=== PATIENT | male | born 1995 | race Caucasian/White ===

== ENCOUNTER 2021-06-05 10:48 | Outpatient (REF) | payer OTHER, SELFPAY ==
[2021-06-05 12:36] LABS: COVID-19 Test Negative (Negative)
== END 2021-06-05 10:49 | disposition home or self-care (01) ==
LOC: HO.LAB 10:48
PROVIDERS: Visit Provider Internal Medicine
DX: Z20.822 Contact with and (suspected) exposure to COVID-19 (principal)
CPT/HCPCS: 36415; 87635; C9803

== ENCOUNTER 2023-03-05 09:13 | Emergency (ER) | payer MEDICAID, SELFPAY ==
[2023-03-05 09:32] VITALS: BP 121/76; PULSE 90; RESP 16; TEMP 37; O2SAT 98; BMI 33.7
--- NOTE | 2023-03-05 10:51 | ED.NAVMDI ---
HPI - Nausea/Vomiting/Diarrhea General Chief complaint: Nausea/Vomiting/Diarrhea Stated complaint: N/V/D Fever Time Seen by Provider: 03/05/23 10:05 History of Present Illness HPI Narrative: patient complains of nausea vomiting and diarrhea for 3 days last vomiting was yesterday night at 04:00, he is tolerating small sips of fluid still feels nauseous, he vomited last night when he tried to eat dinner, he has no abdominal pain no fever no dizziness no weakness and otherwise feels well The diarrhea has no blood, is for 5 times a day of watery stools Related Data Previous Rx's Medication Instructions Recorded loperamide 2 mg capsule (Imodium 2 mg PO Q4H PRN loose stool #10 03/05/23 A-D) caps ondansetron 4 mg disintegrating 4 mg PO Q6H PRN nausea and 03/05/23 tablet vomiting #14 tabs Allergies Allergy/AdvReac Type Severity Reaction Status Date / Time shrimp Allergy Severe ANAPHYLAXIS Verified 03/05/23 09:32 SEAFOOD Allergy Severe ANAPHYLAXIS Uncoded 06/28/20 17:35 [facility] Past Medical History Source: nursing notes reviewed Social History Social History Advance Directives: No Advance Directives Information Provided: Yes Physical Exam Vital Signs: Vital Signs: Last Vital Signs Temp 98.6 F 03/05/23 09:32 Pulse 90 03/05/23 09:32 Resp 16 03/05/23 09:32 BP 121/76 03/05/23 09:32 Pulse Ox 98 03/05/23 09:32 O2 Del Method Room Air 03/05/23 09:32 BMI result Body Mass Index 33.7 general appearance comfortable cheerful cooperative no acute distress Eyes anicteric no pallor Neck is supple Respiratory no distress Abdomen is soft and nontender Extremities for range of motion x4 Skin no rash Neuro gait and balance are normal, interaction comprehension expression normal Course Course Course Narrative: well-appearing patient with likely viral gastroenteritis is tolerating p.o. well enough to be well hydrated, but still nauseous and still experiencing diarrhea so given scripts for Imodium and Zofran Discharge Plan Discharge Clinical Impression: Gastroenteritis Patient Disposition: Home, Self-Care Additional Instructions: you likely have a viral illness causing vomiting and diarrhea At this time your not dehydrated in were very well-appearing, no sign of any dangerous or serious illness This usually gets better on its own in several days For nausea we you can use Zofran which usually prevents vomiting and helps with the nausea Imodium sometimes helps with the diarrhea so you could try Imodium Main thing is drink plenty of fluids so you did not get dehydrated Prescriptions: New ondansetron 4 mg tablet,disintegrating 4 mg PO Q6H PRN (Reason: nausea and vomiting) Qty: 14 0RF loperamide [Imodium A-D] 2 mg capsule 2 mg PO Q4H PRN (Reason: loose stool) Qty: 10 0RF Rx Instructions: administer after each loose stool until symptoms controlled; do not exceed 8 mg per 24 hrs Stand Alone Forms: Work/School Release
== END 2023-03-05 11:06 | disposition home or self-care (01) ==
PROVIDERS: Emergency Provider Emergency Medicine; PCP Internal Medicine
DX: K52.9 Noninfective gastroenteritis and colitis, unspecified (principal)
CPT/HCPCS: 99282; 99284

== ENCOUNTER 2023-06-15 11:18 | Emergency (ER) | payer MEDICAID, SELFPAY ==
--- NOTE | ~2023-06-15 | XR_ITS ---
EXAMINATION: XR LUMBOSACRAL SPINE CLINICAL INFORMATION: Pain 2 weeks COMPARISON: None available. TECHNIQUE: Three views of the lumbosacral spine. FINDINGS: 5 nonrib-bearing lumbar-type vertebral bodies. No acute visible fracture or dislocation. Suggestion of bilateral L5 pars defects. Vertebral body heights and disc spaces are maintained. Posterior elements are intact. Paraspinal soft tissues are unremarkable. Visualized bowel gas is unremarkable XR/XR lumbar spine 2-3V IMPRESSION: 1. No acute visible fracture or dislocation. 2. Suggestion of bilateral L5 pars defects.
[2023-06-15 11:23] VITALS: BP 127/76; PULSE 66; RESP 16; TEMP 37.5; O2SAT 97; BMI 35.0
--- NOTE | 2023-06-15 11:24 | ED_ITS ---
HPI - General Adult General Chief complaint: Back Pain/Injury Stated complaint: back pain Time Seen by Provider: 06/15/23 11:41 Source: patient and RN notes reviewed Mode of arrival: ambulatory Limitations: no limitations History of Present Illness HPI narrative: This is a 27-year-old male presenting to the emergency department for evaluation of low back pain since last week. Patient states that he was playing with his children and then perform several pushups and felt pain in his low back. He was seen at an urgent care and was given anti-inflammatories as well as muscle relaxants which provided him with minimal relief. Patient denies any urinary or bowel incontinence or retention. No saddle anesthesia. No dysuria, hematuria, urinary frequency or urgency. No other complaints or concerns at this time. MD complaint: Back pain Onset (ago): week(s) Radiation: back Severity: mild Quality: aching Pain Consistency: constant Relieving factors: none Exacerbating factors: none Associated symptoms: denies other symptoms Treatments prior to arrival: none Related Data Previous Rx's Medication Instructions Recorded loperamide 2 mg capsule (Imodium 2 mg PO Q4H PRN loose stool #10 03/05/23 A-D) caps ondansetron 4 mg disintegrating 4 mg PO Q6H PRN nausea and 03/05/23 tablet vomiting #14 tabs acetaminophen 325 mg capsule 650 mg PO Q6H PRN pain #45 caps 06/15/23 (Tylenol) lidocaine 5 % topical patch 1 patch topical DAILY #30 ea 06/15/23 (Lidoderm) methocarbamol 750 mg tablet 1,500 mg PO TID 72 hours #18 tabs 06/15/23 prednisone 20 mg tablet 40 mg PO DAILY 5 days #10 tabs 06/15/23 Allergies Allergy/AdvReac Type Severity Reaction Status Date / Time shrimp Allergy Severe ANAPHYLAXIS Verified 06/15/23 11:27 SEAFOOD Allergy Severe ANAPHYLAXIS Uncoded 06/15/23 11:27 Review of Systems Review of Systems: Yes all other systems are reviewed and are negative Constitutional: Constitutional: Reports as per [facility] Social History Social History Advance Directives: No Physical Exam ED Vital Signs: Vital Signs - 24 hr 06/15/23 11:23 Temperature 99.5 F Pulse Rate 66 Respiratory Rate 16 Blood Pressure 127/76 Pulse Oximetry 97 Oxygen Delivery Method Room Air BMI result Body Mass Index 35.0 Const General: cooperative, comfortable and no acute distress Orientation/consciousness: patient oriented x3 Limitations: no limitations HENMT Head: Yes normal to inspection, Yes normocephalic and Yes atraumatic Ears: hearing grossly normal bilaterally General nose exam: Normal external nose present Face and sinus: Yes normal facial exam Mouth: Normal oral and palatal mucosa present, oropharynx normal and moist mucous membranes Throat: Yes posterior oropharynx normal Eyes General: appearance normal, both eyes and all related structures Eyelids: Yes eyelids normal Conjunctivae: conjunctivae normal Sclerae: sclerae normal Pupils: Equal, round and reactive pupils present EOM: EOMs intact bilaterally Neck Neck: Yes normal visual inspection, Yes full ROM and Yes no lymphadenopathy Lymphatic: no lymphadenopathy noted Chest Chest palpation & inspection: normal inspection of the chest Resp Effort & Inspection: normal respiratory effort and able to speak in complete sentences Auscultation: clear to auscultation bilaterally, no crackles, no rales, no rhonchi and no wheezes Cardio Rate: regular rate Rhythm: regular rhythm Heart sounds: S1 normal heart sound present and S2 normal heart sound present GI Inspection: Yes normal to inspection Back/Spine/Pelvis Other: Tenderness palpation along the lumbar paraspinous muscles bilaterally spasms noted. No midline spine tenderness noted throughout the C-spine, T-spine, or L- spine. Skin General skin exam: no rashes or lesions noted Trauma: no lacerations or abrasions Wounds: no wounds Neuro General: patient oriented x3 and moves all extremities Cranial nerves: Yes Equal, round and reactive pupils present Extrem General: Yes normal to inspection Right upper extremity: normal to inspection Left upper extremity: normal to inspection Right lower extremity: normal to inspection Left lower extremity: normal to inspection Course Course Course Narrative: This is a rapid medical exam: Additional HPI, ROS, PE not included below will be deferred to primary provider. Patient is a 27-year-old male presenting to the emergency department with complaint of lower back pain for 2 weeks. Was seen at urgent care one week ago and given anti-inflammatory medication but symptoms have not improved. Denies any precipitating fall or injury, but states symptoms began after not stretching prior to a workout. Pt works at [employer] and is frequently lifting heavy items. Denies fevers, radiation of pain down legs, numbness or tingling to legs. Denies saddle anesthesia or bowel/bladder incontinence. Did not have any imaging at urgent care. Plan: x-ray Medical Decision Making Medical Decision Making MDM Narrative: 27-year-old male presenting to the emergency department with complaints of low back pain since last week. On arrival, vital signs within normal limits. He has no red flag back symptoms on examination. This patient presents with back pain most consistent with muscle spasm. Differential diagnoses includes lumbago versus musculoskeletal spasm / strain versus sciatica. No back pain red flags on history or physical. Presentation not consistent with malignancy (lack of history of malignancy, lack of B symptoms), fracture (no trauma, no bony tenderness to palpation), cauda equina syndrome (no bowel or urinary incontinence/retention, no saddle anesthesia, no distal weakness), pyelonephritis (afebrile, no CVAT, no urinary symptoms). Given the clinical picture, x-rays were obtained for further evaluation. There is a possible pars defect noted. Patient has no tenderness on his midline spine and has obvious muscle spasms noted to bilateral lumbar paraspinous muscles. Will treat as a muscle spasm, given no relief despite conservative measures, will treat with course of prednisone, muscle relaxants, and Tylenol. Advised to follow-up with primary care physician and to return with any new or worsening symptoms. Patient understands and agrees with plan. Patient stable for discharge. Differential Diagnosis Differential Diagnoses: The differential diagnosis associated with the presentation includes See above Radiology Impression Discussion of test interpretation with radiology: I have reviewed the radiologist's reading. Radiologist Impression: EXAMINATION: XR LUMBOSACRAL SPINE CLINICAL INFORMATION: Pain 2 weeks COMPARISON: None available. TECHNIQUE: Three views of the lumbosacral spine. FINDINGS: 5 nonrib-bearing lumbar-type vertebral bodies. No acute visible fracture or dislocation. Suggestion of bilateral L5 pars defects. Vertebral body heights and disc spaces are maintained. Posterior elements are intact. Paraspinal soft tissues are unremarkable. Visualized bowel gas is unremarkable XR/XR lumbar spine 2-3V IMPRESSION: 1.? No acute visible fracture or dislocation. 2.? Suggestion of bilateral L5 pars defects. ? Dictated By: Gavin Abbott MD Discharge Plan Discharge Clinical Impression: Low back pain Patient Disposition: Home, Self-Care Instructions: Acute Low Back Pain (ED) Additional Instructions: X-rays did not show any visible fracture dislocation. They do suggest a bilateral L5 pars defect. Please follow-up with [facility]. Call to make an appointment. Take prescribed medication as directed. Please be aware that muscle relaxants can cause drowsiness, do not drink alcohol or drive while taking this medication. Gentle stretching, massage, heat or ice can also help with your symptoms. If any new or worsening symptoms occur, please return for re-evaluation. [facility] [address] [place] [address] Prescriptions: New prednisone 20 mg tablet 40 mg PO DAILY 5 Days Qty: 10 0RF methocarbamol 750 mg tablet 1,500 mg PO TID 3 Days Qty: 18 0RF acetaminophen [Tylenol] 325 mg capsule 650 mg PO Q6H PRN (Reason: pain) Qty: 45 0RF lidocaine [Lidoderm] 5 % adhesive patch,medicated 1 patch topical DAILY Qty: 30 0RF Rx Instructions: leave on most painful area for up to 12 hrs No Action ondansetron 4 mg tablet,disintegrating 4 mg PO Q6H PRN (Reason: nausea and vomiting) Qty: 14 0RF loperamide [Imodium A-D] 2 mg capsule 2 mg PO Q4H PRN (Reason: loose stool) Qty: 10 0RF Rx Instructions: administer after each loose stool until symptoms controlled; do not exceed 8 mg per 24 hrs Stand Alone Forms: Work/School Release Interventions: ED Discharge Assessment Last Done: 06/15/23 14:11 Discharge Date/Time: 06/15/23 14:11
== END 2023-06-15 14:11 | disposition home or self-care (01) ==
PROVIDERS: Emergency Provider Emergency Medicine; PCP Internal Medicine
DX: M54.50 Low back pain, unspecified (principal)
CPT/HCPCS: 72100; 99282; 99283

== ENCOUNTER 2025-03-20 11:02 | Emergency (ER) | payer OTHER, SELFPAY ==
--- NOTE | ~2025-03-20 | XR_ITS ---
EXAMINATION: XR LUMBAR SPINE 2-3 VIEWS HISTORY: low back pain COMPARISON: Comparison is made with the prior examination dated 06/15/2023. FINDINGS: AP, lateral, and coned down views of the lumbar spine are submitted. Osseous mineralization is normal. Five nonrib-bearing lumbar vertebral bodies are identified, maintaining normal height and alignment without evidence of fracture or spondylolisthesis. The intervertebral disc spaces are preserved. There is minimal spurring involving the inferior endplate of L2. The posterior elements are intact. The visualized paraspinal soft tissues are unremarkable. XR/XR lumbar spine 2-3V IMPRESSION: Minimal spurring involving the inferior endplate of L2. Otherwise unremarkable examination of the lumbar spine. Electronically signed by: Israel Motley MD 03/20/2025 11:31 AM EDT
[2025-03-20 11:08] VITALS: BP 120/73; PULSE 64; RESP 19; TEMP 36.6; O2SAT 99; BMI 33.0
--- NOTE | 2025-03-20 11:09 | ED.GENADULT ---
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 The pain radiates down his right leg and is worse with movement He denies any numbness, tingling, fevers, chills He took Ibuprofen without any improvement He denies IV drug use Related Data Previous Rx's ?Medication ?Instructions ?Recorded loperamide 2 mg capsule (Imodium 2 mg PO Q4H PRN loose stool #10 03/05/23 A-D) caps ondansetron 4 mg disintegrating 4 mg PO Q6H PRN nausea and 03/05/23 tablet vomiting #14 tabs acetaminophen 325 mg capsule 650 mg (2 x 325 mg) PO Q6H PRN 06/15/23 (Tylenol) pain #45 caps lidocaine 5 % topical patch 1 patch topical DAILY #30 ea 06/15/23 (Lidoderm) methocarbamol 750 mg tablet 1,500 mg (2 x 750 mg) PO TID 72 06/15/23 hours #18 tabs prednisone 20 mg tablet 40 mg (2 x 20 mg) PO DAILY 5 days 06/15/23 #10 tabs cyclobenzaprine 10 mg tablet 10 mg PO TID PRN muscle spasm #20 03/20/25 tabs dexamethasone 4 mg tablet 4 mg PO BID #6 tabs 03/20/25 Allergies Allergy/AdvReac Type Severity Reaction Status Date / Time shrimp Allergy Severe ANAPHYLAXIS Verified 03/20/25 11:09 SEAFOOD Allergy Severe ANAPHYLAXIS Uncoded 03/20/25 11:09 Review of Systems Constitutional: Constitutional: Denies body ache(s), Denies chills and Denies fever(s) Eyes: Eyes: Denies blurry vision ENT: Denies vertigo Cardiovascular: Cardiovascular: Denies chest pain and Denies dyspnea Respiratory: Respiratory: Denies cough and Denies dyspnea Gastrointestinal: Gastrointestinal: Denies abdominal pain, Denies nausea and Denies vomiting Musculoskeletal: Musculoskeletal: Reports back pain, Denies numbness, Reports radiating pain into limb, Reports stiffness and Denies tingling Integumentary/Breasts: Skin/Breast: Denies rash Neurologic: Denies vertigo, Denies numbness and Denies tingling Psychiatric: Psychiatric: Denies anxiety PMFSH Social History Social History Advance Directives: No Advance Directives Information Provided: Yes Do you have a plan to hurt others: No Plan Physical Exam ED Vital Signs: Vital Signs - 24 hr 03/20/25 11:08 03/20/25 15:31 Temperature 98 F 98 F Pulse Rate 64 64 Respiratory Rate 19 19 Blood Pressure 120/73 120/73 Pulse Oximetry 99 99 Oxygen Delivery Method Room Air Room Air BMI result Body Mass Index 33.0 Const General: healthy appearing, comfortable, no acute distress, alert and awake Nutritional Appearance: well nourished Orientation/consciousness: patient oriented x3 HENMT Head: Yes normocephalic and Yes atraumatic Throat: Yes posterior oropharynx normal Eyes Eyelids: Yes eyelids normal Conjunctivae: conjunctivae normal Sclerae: sclerae normal Corneas: corneas normal Pupils: Equal, round and reactive pupils present EOM: EOMs intact bilaterally Neck Neck: Yes full ROM Resp Effort & Inspection: normal respiratory effort, able to speak in complete sentences and not labored Back/Spine/Pelvis Other: Tenderness across the lumbar spine and paraspinous region. No step-offs or deformities to the lumbar vertebrae. Straight leg raise positive on right. Strength to bilateral lower extremities 5/5 Skin General skin exam: elasticity normal Neuro General: patient oriented x3 Cranial nerves: Yes Equal, round and reactive pupils present and Yes Bilaterally intact EOM present Cognition (Neuro): normal cognition Extrem Other: Moving all extremities well without any obvious deformities Course Course Course Narrative: RME, this is a rapid medical exam performed by Jesus Johnson please refer to primary provider for complete H&P- 29 year old male presents for evaluation of low back pain that started this morning. Symptoms started after he was playing with his daughter,, He reports no improvement with Ibuprofen. Plan for x-rays and UA Medications Administered Discontinued Medications Generic Name Dose Route Start Last Admin Trade Name Freq PRN Reason Stop Dose Admin Ketorolac Tromethamine 30 mg 03/20/25 15:18 03/20/25 15:27 Ketorolac Tromethamine 30 Mg/Ml Vial IM 03/20/25 15:19 30 mg ONCE ONE Administration Medical Decision Making Medical Decision Making MDM Narrative: 29 year old male with no significant past medical history presents for evaluation of low back pain after picking up his small child. He has no warning signs for cauda equina syndrome. No signs or risks for infectious cause of his back pain. X-rays show mild arthritis. Exam is consistent with sciatica Differential Diagnosis Differential Diagnoses: The differential diagnosis associated with the presentation includes Sciatica Muscle strain Lumbar radiculopathy Compression fracture Lab Data Labs: Lab Results 03/20/25 Range/Units 12:32 Urine Color Yellow Urine Appearance Clear Urine pH 6.0 (5.0-9.0) Ur Specific [place] >= 1.030 H (1.005-1.025) Urine Protein Negative (Neg-Trace) mg/dL Urine Glucose (UA) Negative (Negative) mg/dL Urine Ketones Trace (Negative) mg/dL Urine Blood Negative (Negative) Urine Nitrite Negative (Negative) Ur Leukocyte Esterase Negative (Negative) Urine RBC 0-2 (0-2) /HPF Urine WBC 0-5 (0-5) /HPF Ur Squamous Epith Cells 0-2 (0-2) /HPF Urine Bacteria None Seen (None Seen) Hyaline Casts 0-2 (0-2) /LPF Radiology Impression Discussion of test interpretation with radiology: I have reviewed the radiologist's reading. Radiologist Impression: FINDINGS: AP, lateral, and coned down views of the lumbar spine are submitted. Osseous mineralization is normal. Five nonrib-bearing lumbar vertebral bodies are identified, maintaining normal height and alignment without evidence of fracture or spondylolisthesis. The intervertebral disc spaces are preserved. There is minimal spurring involving the inferior endplate of L2. The posterior elements are intact. The visualized paraspinal soft tissues are unremarkable. XR/XR lumbar spine 2-3V IMPRESSION: Minimal spurring involving the inferior endplate of L2. Otherwise unremarkable examination of the lumbar spine. Electronically signed by: Israel Motley MD 03/20/2025 11:31 AM EDT Discharge Plan Discharge Clinical Impression: Lumbar radiculopathy Patient Disposition: Home, Self-Care Instructions: Sciatica (ED), Lower Back Exercises (ED) Additional Instructions: Your x-ray showed mild arthritis Your back pain today is most likely related to a muscle strain You may continue ibuprofen and Tylenol for the pain Take dexamethasone twice daily for the next 3 days Use cyclobenzaprine as needed for muscle spasms This may make you drowsy, do not drink alcohol or drive after taking it Prescriptions: New cyclobenzaprine 10 mg tablet 10 mg PO TID PRN (Reason: muscle spasm) Qty: 20 0RF dexamethasone 4 mg tablet 4 mg PO BID Qty: 6 0RF No Action ondansetron 4 mg tablet,disintegrating 4 mg PO Q6H PRN (Reason: nausea and vomiting) Qty: 14 0RF loperamide [Imodium A-D] 2 mg capsule 2 mg PO Q4H PRN (Reason: loose stool) Qty: 10 0RF Rx Instructions: administer after each loose stool until symptoms controlled; do not exceed 8 mg per 24 hrs prednisone 20 mg tablet 40 mg PO DAILY 5 Days Qty: 10 0RF methocarbamol 750 mg tablet 1,500 mg PO TID 3 Days Qty: 18 0RF acetaminophen [Tylenol] 325 mg capsule 650 mg PO Q6H PRN (Reason: pain) Qty: 45 0RF lidocaine [Lidoderm] 5 % adhesive patch,medicated 1 patch topical DAILY Qty: 30 0RF Rx Instructions: leave on most painful area for up to 12 hrs Stand Alone Forms: Work/School Release Interventions: ED Discharge Assessment Last Done: 03/20/25 15:31 Discharge Date/Time: 03/20/25 15:32 Print Language: Polish
[2025-03-20 12:42] LABS: Appearance Urine Clear; Color Urine Yellow; Glucose Urine UA Negative (Negative); Leukocyte Esterase Urine Negative (Negative); Nitrite Urine Negative (Negative); Specific Gravity - Urine >= 1.030 (1.005-1.025); Urine Blood Negative (Negative); Urine Ketones Trace mg/dL (Negative); Urine Protein Negative (Neg-Trace)
[2025-03-20 12:44] LABS: Bacteria Urine None Seen (None Seen); Hyaline Casts Urine 0-2 /LPF (0-2); RBC Urine 0-2 /HPF (0-2); Squamous Epithelial Cell Urine 0-2 /HPF (0-2); WBC Urine 0-5 /HPF (0-5)
[2025-03-20] MEDS: Ketorolac Tromethamine 30 MG/ML VIAL IM (15:27)
[2025-03-20 15:31] VITALS: BP 120/73; PULSE 64; RESP 19; TEMP 36.6; O2SAT 99
== END 2025-03-20 15:32 | disposition home or self-care (01) ==
PROVIDERS: Physician Assistant; Emergency Provider Emergency Medicine
DX: M54.16 Radiculopathy, lumbar region (principal); M54.50 Low back pain, unspecified; R42 Dizziness and giddiness
CPT/HCPCS: 72100; 81001; 96372; 99284; J1885

== ENCOUNTER → 2025-03-20 11:10 | Outpatient (BNV) | payer MEDICAID, SELFPAY | PROVIDERS: Visit Provider Radiology Diagnostic Radiology | DX: M25.78 Osteophyte, vertebrae (principal) | CPT/HCPCS: 72100 ==